=== PATIENT | male | born 1995 | race Caucasian/White ===

== ENCOUNTER 2019-09-27 18:00 | Emergency (ER) | payer OTHER ==
[~2019-09-27] VITALS: Ht 175.3 cm; Wt 54.4 kg
[2019-09-27] MEDS ORDERED: CEPACOL SORE T1 EAC8 PO (21:59)
[2019-09-27] MEDS ORDERED: PREDNISONE 20 M20 M1 PO (21:59)
[2019-09-27 22:06] VITALS: BP 121/61
== END 2019-09-27 22:06 | disposition home or self-care (01) ==
LOC: ER 18:00
DX: J02.9 Acute pharyngitis, unspecified (principal)